=== PATIENT | female | born 1980 | race Caucasian/White ===

== ENCOUNTER 2019-11-04 08:34 | Outpatient (CLI) | payer OTHER ==
[2019-11-05 12:18] LABS: SARS-CoV-2 MS2 Positive; SARS-CoV-2 N Gene Negative; SARS-CoV-2 S Gene Negative; SARS-CoV-2 orf1ab Negative
== END 2019-11-04 08:35 | disposition home or self-care (01) ==
LOC: LABSCS 08:34
PROVIDERS: ATTEND Family Medicine
DX: Z01.812 Encounter for preprocedural laboratory examination (principal); Z11.59 Encounter for screening for other viral diseases
CPT/HCPCS: 87635; U0003

== ENCOUNTER 2019-11-09 19:30 | Outpatient (CLI) | payer OTHER | END 2019-11-09 19:31 | disposition home or self-care (01) | LOC: SLEEPLAB 19:30 | PROVIDERS: ATTEND Family Medicine | DX: G47.33 Obstructive sleep apnea (adult) (pediatric) (principal); R53.83 Other fatigue; R06.83 Snoring; G47.00 Insomnia, unspecified | CPT/HCPCS: 95810 ==

== ENCOUNTER 2023-01-29 11:16 | Outpatient (CLI) | payer BC | END 2023-01-29 11:17 | disposition home or self-care (01) | LOC: DTY/OP 11:16 | PROVIDERS: ATTEND Specialist | DX: E66.01 Morbid (severe) obesity due to excess calories (principal) | CPT/HCPCS: 97802 ==

== ENCOUNTER 2023-03-09 07:00 | Inpatient (IN) | payer BC ==
[2023-03-09 10:01] VITALS: BMI 59.3
[2023-03-19] MEDS ORDERED: Heparin 5,000 UNITS/ML VIAL ONE (10:24)
[2023-03-19] MEDS ORDERED: Ketorolac Tromethamine 30 MG/ML VIAL ONE (10:24)
[2023-03-19] MEDS ORDERED: Acetaminophen 500 MG TAB ONE (10:24)
[2023-03-19] MEDS ORDERED: Rocuronium Bromide 10 MG/ML (10ML VIAL) ONE ×2 (12:20→12:49)
[2023-03-19] MEDS ORDERED: PROPOFOL 20 ML ONE ×2 (12:20→12:51)
[2023-03-19] MEDS ORDERED: Lidocaine 1% PF 5 ML VIAL ONE ×2 (12:20→12:49)
[2023-03-19] MEDS ORDERED: fentaNYL PF 100 MCG/2 ML SYRINGE ONE (12:20)
[2023-03-19] MEDS ORDERED: Indocyanine Green 25 MG/10 ML VIAL ONE (12:21)
[2023-03-19] MEDS ORDERED: Bupivacaine 0.25% HCL 30 ML VIAL ONE ×2 (12:21→12:22)
[2023-03-19] MEDS ORDERED: EPINEPHrine 1 MG/ML VIAL ONE (12:21)
[2023-03-19] MEDS ORDERED: Sodium Chloride 0.9% 100 ML ONE (12:28)
[2023-03-19] MEDS ORDERED: CEFAZOLIN 2 GM VIAL ONE (12:28)
[2023-03-19] MEDS ORDERED: Dexamethasone 20 MG/5 ML VIAL ONE ×2 (12:49→13:02)
[2023-03-19] MEDS ORDERED: Ondansetron PF 4 MG/2 ML Vial ONE ×2 (12:49→14:44)
[2023-03-19] MEDS ORDERED: PROPOFOL 200 MG/20 ML VIAL ONE (12:49)
[2023-03-19] MEDS ORDERED: SUGAMMADEX SODIUM 200 MG/2 ML VIAL ONE (14:47)
[2023-03-19] MEDS ORDERED: Ondansetron HCl/PF 4 MG/2 ML Vial IVP PRN (15:19)
[2023-03-19] MEDS ORDERED: Fentanyl 250 MCG/5 ML VIAL ONE (15:36)
[2023-03-19] MEDS ORDERED: Glucagon 1 MG/ML KIT IM PRN (17:24)
[2023-03-19] MEDS ORDERED: hydrALAZINE 20 MG/ML VIAL SLOW IVP PRN (17:24)
[2023-03-19] MEDS ORDERED: Promethazine HCl 25 MG/ML VIAL IM PRN (17:24)
[2023-03-19] MEDS ORDERED: Ondansetron PF 4 MG/2 ML Vial IVP PRN (17:24)
[2023-03-19] MEDS ORDERED: Morphine 4 MG/ML VIAL SLOW IVP PRN (17:24)
[2023-03-19] MEDS ORDERED: Morphine 2 MG/ML VIAL SLOW IVP PRN (17:24)
[2023-03-19] MEDS ORDERED: Ipratropium/Albuterol 3 ML NEB NEB PRN (17:24)
[2023-03-19] MEDS ORDERED: Dextrose 5% in Water 1,000 ML IV PRN (17:24)
[2023-03-19] MEDS ORDERED: Dextrose 50% Abboject 50 ML SYRINGE SLOW IVP PRN (17:24)
[2023-03-19] MEDS ORDERED: diphenhydrAMINE 50 MG/ML VIAL IVP PRN (17:24)
[2023-03-19] MEDS ORDERED: fentaNYL 50 mcg/mL 1 mL Vial ONE (17:28)
[2023-03-19] MEDS: Ketorolac Tromethamine 30 MG/ML VIAL IVP SCH (18:19)
[2023-03-19] MEDS: D5 1/2 NS w/20 mEq KCL 1,000 ML IV SCH (18:19)
[2023-03-19] MEDS: Hydrocodone-Acetamin 15 ML UDCUP PO PRN (22:40)
[2023-03-20] MEDS: Ketorolac Tromethamine 30 MG/ML VIAL IVP SCH ×4 (00:14→16:55)
[2023-03-20] MEDS: D5 1/2 NS w/20 mEq KCL 1,000 ML IV SCH ×3 (04:27→14:30)
[2023-03-20 05:12] LABS: #Monocytes 0.4 thou/uL (0.11-0.59); #Neutrophils 6.8 thou/uL (1.40-6.50); %Basophils 0.1 % (0.0-1.0); %Lymphocytes 8.1 % (21.0-51.0); %Monocytes 5.5 % (0.0-10.0); %Neutrophils 85.9 % (42.0-75.0); Hematocrit 41.6 % (36.0-47.0); Hemoglobin 13.8 g/dL (12.0-16.0); Mean Corpuscular HGB CONC 33.2 g/dL (32.0-36.0); Mean Corpuscular Hemoglobin 31.4 pg (27.0-31.0); Mean Corpuscular Volume 94.8 fl (78.0-98.0); Mean Platelet Volume 9.3 fL (7.4-10.4); Platelet Count 293 10x3/uL (130-400); RBC Distribution Width 12.5 % (11.5-14.5); Red Blood Cell (RBC) Count 4.39 mill/uL (4.20-5.40); White Blood Cell (WBC) Count 7.9 10x3/uL (4.8-10.8)
[2023-03-20 05:50] LABS: Anion Gap 13 mmol/L (10-20); BUN (Urea Nitrogen) 7 mg/dL (7.0-18.7); Calc. Creatinine Clearance 279 mL/min (70-130); Calcium 8.9 mg/dL (7.8-10.44); Carbon Dioxide 24 mmol/L (22-29); Chloride 102 mmol/L (98-107); Estimated GFR 111; Glucose 127 mg/dL (70-105); Potassium 4.4 mmol/L (3.5-5.1); Sodium 135 mmol/L (136-145)
[2023-03-20] MEDS: Pantoprazole 40 MG VIAL IVP SCH (09:33)
[2023-03-21] MEDS: Ketorolac Tromethamine 30 MG/ML VIAL IVP SCH ×2 (00:21→06:01)
[2023-03-21] MEDS: D5 1/2 NS w/20 mEq KCL 1,000 ML IV SCH ×2 (00:22→10:30)
[2023-03-21] MEDS: Hydrocodone-Acetamin 15 ML UDCUP PO PRN (00:29)
[2023-03-21 08:20] VITALS: BP 126/73; TEMP 98
[2023-03-21] MEDS: Pantoprazole 40 MG VIAL IVP SCH (09:22)
== END 2023-03-21 11:40 | disposition home or self-care (01) | DRG 621 ==
LOC: EDSTATUS 03-19 07:00 → SURG A 03-19 10:09
PROVIDERS: ADMIT Specialist; ATTEND Specialist
PROC: 0DB64Z3 Excision of Stomach, Percutaneous Endoscopic Approach, Vertical (ICD-10-PCS; principal; 2023-03-19)
PROC: 8E0W4CZ Robotic Assisted Procedure of Trunk Region, Percutaneous Endoscopic Approach (ICD-10-PCS; 2023-03-19)
DX: E66.01 Morbid (severe) obesity due to excess calories (principal); I10 Essential (primary) hypertension; K21.9 Gastro-esophageal reflux disease without esophagitis; Z90.49 Acquired absence of other specified parts of digestive tract; Z98.890 Other specified postprocedural states; Z88.8 Allergy status to other drugs, medicaments and biological substances; Z68.43 Body mass index [BMI] 50.0-59.9, adult
CPT/HCPCS: 36415; 80048; 85025; 88307; C9113; J0171; J1100; J1644; J1650; J1885; J2405; J2704; J3010; J3480; J3490; S0020

== ENCOUNTER 2023-03-09 09:29 | Outpatient (CLI) | payer BC ==
[2023-03-09 10:13] LABS: #Monocytes 0.8 10x3/uL (0.0-1.1); #Neutrophils 3.8 10x3/uL (1.5-8.4); %Basophils 0.3 % (0.0-2.0); %Eosinophils 0.6 % (0.0-6.0); %Lymphocytes 29.3 % (18.0-47.0); %Monocytes 11.5 % (0.0-10.0); Hemoglobin 14.8 g/dL (12.0-15.5); Mean Corpuscular HGB CONC 34.4 g/dL (32.0-36.0); Mean Corpuscular Hemoglobin 31.6 pg (27.0-33.0); Mean Corpuscular Volume 91.9 fl (81.6-98.3); Mean Platelet Volume 8.6 fl (7.4-10.4); Platelet Count 362 10x3/uL (150-450); RBC Distribution Width 12.1 % (11.5-14.5); Red Blood Cell (RBC) Count 4.68 10x6/uL (3.90-5.03); White Blood Cell (WBC) Count 6.6 10x3/uL (3.5-10.5)
[2023-03-09 11:59] LABS: Anion Gap 16 mmol/L (10-20); BUN (Urea Nitrogen) 9 mg/dL (7.0-18.7); Calc. Creatinine Clearance 0 mL/min (70-130); Calcium 9.2 mg/dL (7.8-10.44); Carbon Dioxide 24 mmol/L (22-29); Chloride 102 mmol/L (98-107); Estimated GFR 113; Glucose 102 mg/dL (70-105); Potassium 4.5 mmol/L (3.5-5.1); Sodium 137 mmol/L (136-145)
[2023-03-09 12:49] LABS: BHCG - Serum Negative (NEGATIVE); Pregs Control Background? CLEAR/WHITE (CLR/WHITE); Pregs Control Bar Appear? YES (CONTROL BAR)
== END 2023-03-09 09:30 | disposition home or self-care (01) ==
LOC: LABBT 09:29
PROVIDERS: ATTEND Specialist
DX: Z01.818 Encounter for other preprocedural examination (principal); E66.01 Morbid (severe) obesity due to excess calories
CPT/HCPCS: 80048; 84703; 85025; 93005; 93010